=== PATIENT | female | born 1980 | race American Indian/Alaskan Native ===

== ENCOUNTER 2022-03-08 12:34 | Outpatient (CLI) | payer OTHER ==
[~2022-03-08 12:34] MED LIST: GADOBUTROL 7.5 MMOL/7.5 ML VIAL ONE
--- NOTE | 2022-03-08 15:01 | MRI Report ---
PROCEDURE: LUMBAR SPINE W/WO INDICATIONS: SOFT TISSUSE MASS CONTRAST: gadavist 6.4ml TECHNIQUE: Noncontrast sagittal T1 spin echo and T2 fast spin echo, sagittal STIR, axial T1 and T2 fast spin ech o through the lumbar spine. In cases with scoliosis, additional coronal T2 fast spin echo may be per formed. After the administration of contrast, sagittal and axial T1 spin echo with fat saturation th rough the lumbar spine. COMPARISON: None. FINDINGS: Image quality: Excellent. Alignment and curvature: There is trace anterolisthesis of L5 on S1. Marrow: Marrow is of normal overall signal. No acute vertebral body compression fractures. No susp icious marrow enhancement. Spinal cord: Conus medullaris terminates at the L1 level. Visualized spinal cord demonstrates arleth l signal, without suspicious enhancement. Paraspinous soft tissues: No paravertebral masses or abnormal enhancement. No abnormality identifie d at the area of palpable concern. Discs: Mild disc desiccation is present L4-5, L5-S1. L1-L2: No disc bulge, spinal stenosis or foraminal narrowing. L2-L3: Minimal disc bulge without spinal stenosis or foraminal narrowing. L3-L4: Mild disc bulge with posterior central protrusion with mild spinal stenosis and indentation of the anterior thecal sac. Minimal left foraminal narrowing. L4-L5: Mild disc bulge with slight effacement of the anterior thecal sac. Moderate bilateral forami nal narrowing with facet and ligamentum flavum hypertrophy. L5-S1: Mild disc bulge without spinal stenosis. Moderate to severe bilateral foraminal narrowing, l eft greater than right with facet and ligamentum flavum hypertrophy. There is appearance of pars defe ct with 3 mm anterolisthesis. IMPRESSION: Early multilevel degenerative changes as above. No visualized mass at the area of concern. Reviewed by: Caty Owens MD on 03/08/2022 3:00 PM PST Approved by: Caty Owens MD on 03/08/2022 3:00 PM PST Station ID: [id number]
[2022-03-08] MEDS ORDERED: GADOBUTROL 7.5 MMOL/7.5 ML VIAL IVP ONE (16:35)
== END 2022-03-08 12:35 | disposition home or self-care (01) ==
LOC: DI 12:34
PROVIDERS: ATTEND Physician Assistant
DX: M51.36 Other intervertebral disc degeneration, lumbar region (principal); M48.061 Spinal stenosis, lumbar region without neurogenic claudication; M47.816 Spondylosis without myelopathy or radiculopathy, lumbar region; M51.37 Other intervertebral disc degeneration, lumbosacral region; M47.817 Spondylosis without myelopathy or radiculopathy, lumbosacral region
CPT/HCPCS: 72158; A9585

== ENCOUNTER 2022-06-23 10:14 | Outpatient (CLI) | payer OTHER ==
[2022-06-23 10:51] VITALS: BP 122/70
--- NOTE | 2022-06-23 10:51 | SLEEP CARE CONSULTATION ---
Information from patient questionnaire entered by Adrianna Reyes. I have reviewed and concur with the information entered by Adrianna Reyes. This document represents the service I personally performed and the decisions made by me, Rossy Polo ARNP. History of Present Illness Service Date and Time: 06/23/2022 1014 Reason for Visit: New patient Chief Complaint: reports: Snoring, Frequent awakenings at night Date of Onset: 10+ years Usual bedtime: 11 PM Time it takes to fall asleep: 10 mins Snores at night: Yes Observed to quit breathing while asleep: No Sleeps alone due to snoring: No Number of times waking at night: 2-4 Reasons for waking at night: reports: Other (unknown reasons). denies: Choking, Snoring, Gasping for air Toss, Turn, or Twitch while sleeping: Yes Recalls having dreams: Yes Usually gets out of bed at: 7:20 AM; weekends [id number] Feels refreshed in the morning: No (somewhat) Morning headache: No Sleepy or fatigued during the day: Yes Ever fallen asleep while driving: No Takes day naps: No Prior sleep studies: No Additional HPI information: I had the pleasure of seeing JANA FLOWERS today regarding the possibility of her having a sleep disorder. Her current complaints are snoring and frequent night awakenings. She states that she can fall asleep well but will wake up frequently at night. She does not get up, out of bed. She just tries to go back to sleep. She has ADHD and is taking Adderall. She states that she snores but she has not been told that she stops breathing. She is taking Doxepin for anxiety at night. - Parasomnia Symptoms Ever been unable to move upon waking from sleep: Yes (1-2 times in life when younger) Walks in sleep: No Talks in sleep: No Ever acted out dreams in sleep: No Ever felt weak in the knees when startled or emotional: No Bothered by creepy, crawly, restless sensations in legs: No Problems with memory or concentration: Yes (both; hx of ADHD) Subjective Initial [place] Sleepiness Scale score: 5 (06/23/2022) Past Medical History Past Medical History: reports: Anxiety, Attention deficit Social History The patient's occupation is a [employer]. Patient is and lives in . Have you smoked in the past 12 months: No Alcohol use: Yes Alcohol amount and frequency: 4-6 drinks, 2-3 times a week Caffeine use: Yes Caffeine amount and frequency: 1 beverage, 3 x a week Family History Family history of sleep disordered breathing: No Allergies and Home Medications Known drug allergies: No Drug allergies reviewed: Yes Home medication list reviewed: Yes Allergy and home medication list: Medications: Adderall XR 15 mg daily Wellbutrin 150 mg daily Doxepin 3 mg nightly Review of Systems Weight gain over past 5 years: 20 Weight loss over past 5 years: 20, currently down Cardiovascular: denies: high blood pressure Respiratory: denies: shortness of breath Gastrointestinal: denies: heartburn Neurological: denies: headaches, seizure Psychiatric: reports: Attention Deficit Hyperactivity, anxiety Ear/Nose/Throat: reports: wisdom teeth removed. denies: tonsillectomy Endocrine: denies: thyroid disease Musculoskeletal: reports: back pain Immunologic: reports: allergies to food or environment (shrimp) Physical Exam Vital signs obtained and entered by: ADRIANNA Multani MA Blood Pressure: 122/70 (LEFT ARM) Cuff size: regular Heart Rate: 75 O2 Saturation: 99 Height: 5 ft 2 in Weight: 140 lb 6.4 oz Body Mass Index: 25.7 BMI Classification: Overweight Neck circumference: 13.75 Mouth and throat: normal Soft palate: long Hard palate: normal Uvula: normal Uvula visualization: 100% Mallampati Class I Tongue: enlarged in size with teeth lai on lateral edges Tonsils: 1+ Neck: normal w/o lymphadenopathy or thyromegaly Heart: regular rate and rhythm Lungs: clear bilaterally Impression and Plan 1. Suspected Obstructive Sleep Apnea-Hypopnea Syndrome, as suggested by a history of irregular snoring, frequent awakening during the night, unrefreshed sleep and cognitive impairment. Narrow oropharynx and obesity are common predisposing factors for obstructive sleep apnea-hypopnea syndrome. I recommend proceeding to polysomnography to confirm the diagnosis and to assess severity. If the patient has significant sleep disordered breathing, a manual CPAP titration study will also be performed to find the optimal treatment pressure. I informed the patient of what the sleep studies involve and after some discussion, obtained agreement to proceed. The pathophysiology of obstructive sleep apnea-hypopnea syndrome was discussed with the patient and health risks of cardiovascular and cerebrovascular disease if not treated. Risks of drowsy driving discussed in detail and patient advised to avoid long distance driving and to door puller at the first sign of drowsiness. Patient agreed to plan. * Schedule polysomnography +- manual CPAP titration study and return in 1-2 weeks after the study to discuss result and initiate therapy. * Avoid long distance driving or driving when feeling sleepy. * Avoid alcohol, sedative and muscle relaxant around bedtime. * Attempt to lose weight. * Review instructions provided by trained office staff on how to prepare for the sleep study. * Return for follow-up after sleep study completed. Counseling Topics: Weight loss health impact Visit Type: In Office Time Spent with Patient (minutes): 32 Provider Statement: I spent 100% of the Face to Face Visit with the patient with greater than 50% spent counseling the patient and coordination of care.
== END 2022-06-23 10:15 | disposition home or self-care (01) ==
LOC: SC 10:14
PROVIDERS: ATTEND Nurse Practitioner Family
DX: R06.83 Snoring (principal); G47.8 Other sleep disorders; E66.3 Overweight; Z68.25 Body mass index [BMI] 25.0-25.9, adult
CPT/HCPCS: 99203; 99212

== ENCOUNTER 2022-08-02 20:20 | Outpatient (CLI) | payer OTHER | END 2022-08-02 20:21 | disposition home or self-care (01) | LOC: SC 20:20 | PROVIDERS: ATTEND Nurse Practitioner Family | DX: G47.8 Other sleep disorders (principal) | CPT/HCPCS: 95810 ==

== ENCOUNTER 2022-08-05 10:53 | Outpatient (CLI) | payer OTHER ==
--- NOTE | 2022-08-05 10:45 | SLEEP CARE CONSULTATION ---
Information from patient questionnaire entered by Sheela Reyes. I have reviewed and concur with the information entered by Sheela Reyes. This document represents the service I personally performed and the decisions made by , Rossy Polo ARNP. History of Present Illness Service Date and Time: 08/05/2022 1020 Initial [place] Sleepiness Scale score: 5 (06/23/2022) Current [place] Sleepiness Scale score: 4 (08/05/22) Additional HPI information: JANA FLOWERS returns via video telehealth visit for follow up and results of the recently performed polysomnography. Patient was found to have mild Upper Airway Resistance Syndrome with an AHI of 1.5 with RDI 9.7 and rosangela oxygen saturation of 92%. I explained the pathophysiology behind obstructive sleep apnea. We then spent quite a bit of time discussing different treatment options. For mild obstructive sleep apnea, surgery and oral appliance are alternatives to nasal CPAP therapy but in moderate or severe cases, nasal CPAP is the most effective and reliable treatment. Because apnea is primarily in supine position, then positional management therapy could be effective. Methods discussed such as positioning with pillows, using a T-shirt with tennis balls in the back or commercial products that have a pillow format on back to prevent supine sleep. I reviewed the impact of weight changes on sleep apnea and strongly recommended losing weight. After some discussion, the patient opted to go with the nasal CPAP therapy. Nasal autoCPAP set at 4-15 cmH20 will be ordered with rationale explained. A manual titration study will be ordered if unable to find optimal pressure with office adjustments. I explained how CPAP machine works and what to expect when using the machine. Using CPAP every night in order to get used to it was emphasized. Patient advised to put CPAP mask on before getting into bed so as not to fall asleep without CPAP. To assist acclimation to CPAP use, it could also be used for a short time during day while reading or watching TV. The patient was instructed to call the CPAP supplier to discuss any mechanical problem that may occur. If the mask given is uncomfortable or is difficult to keep on through the night even with adjustment, contact the CPAP supplier as many will replace with another mask style if notified before 30 days. If snoring or perceives is not getting enough air or too much air from the machine, notify this office. Patient was cautioned about risks of drowsy driving until sleepiness symptoms resolve. Sleep Study - Results Type of Sleep Study: Polysomnography (COMPLETED 08/02/22) Prior sleep studies: No Polysomnography/Home Sleep Study results: IMPRESSION: The quality of the study is good. The patient had slightly reduced sleep efficiency due to frequent awakenings during the night. The sleep architecture was abnormal for sleep fragmentation and reduced amount of time spent in REM sleep. Respiratory monitoring showed evidence of upper airway resistance (AHI = 1.5 and RDI of 9.7) associated with frequent arousals, oxyhemoglobin desaturation but no significant hypoxia (rosangela oxygen saturation of 92%). The respiratory events occurred mainly during supine sleep (supine AHI = 9.8; non-supine = 0.90). Snore was moderate in intensity. There was no significant periodic leg movement of sleep. Cardiac rhythm was normal sinus rhythm without significant arrhythmia. No abnormal behavior (parasomnia) observed during the night. Allergies and Home Medications Known drug allergies: No Drug allergies reviewed: Yes Home medication list reviewed: Yes (Doxepin 6 mg) Review of Systems Review of systems same as previous: Yes (no changes) Physical Exam Vital signs obtained and entered by: SHEELA Multani MA Blood Pressure: 127/80 (PER PT) Height: 5 ft 1 in (PER PT) Weight: 138 lb (PER PT) Body Mass Index: 26.0 BMI Classification: Overweight Impression and Plan 1. Upper Airway Resistance Syndrome, mild, with lowest oxygen saturation of 92%. Obviously this is the cause of the patients symptoms of unrefreshed sleep, and excessive daytime sleepiness. Positive pressure therapy could benefit anxiety and attention deficit. As mentioned above, the patient will be started on nasal autoCPAP therapy with pressure set at 4-15 cmH2O. Compliance guidelines also reviewed. A copy of compliance guidelines will be given for reference at check out. Because the apnea is more severe supine, I instructed to avoid sleeping supine using pillow positioning until able to start CPAP use. * Nasal auto CPAP therapy, pressure at 4-15 cm H2O. * Attempt to lose weight. * Avoid alcohol consumption near bedtime. * Avoid supine sleep until using CPAP. * The patient is again cautioned about driving until sleepiness completely resolves. * Return one month after CPAP obtained. I will assess response to therapy and compliance at that time. Counseling Topics: Weight loss health impact Visit Type: Telehealth Video Video Type: Doximity Patient Location: Home Location of Provider: Office Patient agrees and consents to this telehealth visit type: Yes Patient agrees to have their insurance billed: Yes Time Spent with Patient (minutes): 21 Provider Statement: I spent 100% of the Telehealth Video Call with the patient with greater than 50% spent counseling the patient and coordination of care.
[2022-08-05 10:46] VITALS: BP 127/80
== END 2022-08-05 10:54 | disposition home or self-care (01) ==
LOC: SC 10:53
PROVIDERS: ATTEND Nurse Practitioner Family
DX: G47.8 Other sleep disorders (principal); E66.3 Overweight; Z68.26 Body mass index [BMI] 26.0-26.9, adult

== ENCOUNTER 2022-10-26 10:59 | Outpatient (CLI) | payer OTHER ==
--- NOTE | 2022-10-26 11:42 | Sleep Patient Instructions ---
Sleep Center Visit Summary - Patient Visit Information Reason for Visit: First Compliance visit for PAP therapy - Patient Instructions Additional Instructions: You were here for follow up of CPAP therapy. You will be continued on CPAP therapy with pressure at 8-11 cmH2O. Please let us know if the pressure change is uncomfortable and we can make further adjustments of the pressure. You should follow up with sleep care in 1-2 months. You may contact us sooner for any questions or concerns. - Clinic Information Contact: [facility] [address] [place] [address] [email or web address] T: [phone]
--- NOTE | 2022-10-26 11:47 | SLEEP CARE CONSULTATION ---
Information from patient questionnaire entered by Adrianna Reyes. I have reviewed and concur with the information entered by Adrianna Reyes. This document represents the service I personally performed and the decisions made by , Rossy Polo ARNP. History of Present Illness Service Date and Time: 10/26/2022 1059 Previous diagnosis: Mild, Other (Upper Airway Resistance Syndrome) AHI: 1.5 (with RDI 9.7 in 04/05/2022) Reason for follow up: first compliance Equipment type: CPAP (RESMED 11, s/) Equipment obtained from: Other ([facility] [employer], [employer] supplies) Mask style: Nasal Backup mask available: No (will keep old mask when replaced) Last cushion change: 2 weeks Prior sleep studies: No Type of Sleep Study: Polysomnography (COMPLETED 08/02/22) HPI additional information: JANA FLOWERS was diagnosed to have mild, AHI 1.5 with RDI 9.7, upper airway resistance syndrome and returned today with children for CPAP therapy first compliance follow-up. Sleep Study - Results Type of Sleep Study: Polysomnography (COMPLETED 08/02/22) Prior sleep studies: No CPAP Compliance Data - Data Reviewed with Patient Average duration of nightly device use: 6 hours 31 minutes Compliance rate %: 27 (12/27 days used) Current pressure setting (cmH2O): 4-15 (median 8.5, avg 12.4, max 13.5) Average residual AHI: 2.1 (RERA 0.1) Central apnea: 1.4 Obstructive apnea: 0.3 Hypopnea: 0.4 Subjective Missed days of use due to: reports: travel, other (lazy) Patient concerns: denies: aerophagia, mask discomfort, air blowing in eyes, mask leak noise, condensation in mask/hose, nasal congestion, dry mouth, nose, throat, epistaxis Observed to snore while using device: No Current pressure setting perceived as: comfortable On therapy, patient: reports: other (has not noticed a difference yet). denies: drowsiness while driving Initial [place] Sleepiness Scale score: 5 (06/23/2022) Current [place] Sleepiness Scale score: 2 (10/26/22) Allergies and Home Medications Known drug allergies: No Drug allergies reviewed: Yes Home medication list reviewed: Yes (Adderall) Allergy and home medication list: Allergies No Known Drug Allergies Allergy (Verified 10/25/22 09:36) Review of Systems Review of systems same as previous: Yes (no changes) Physical Exam Vital signs obtained and entered by: ADRIANNA Multani MA Blood Pressure: 120/76 (LEFT ARM) Cuff size: regular Heart Rate: 71 O2 Saturation: 98 Height: 5 ft 1 in (PER PT) Weight: 139 lb 6.4 oz Body Mass Index: 26.3 BMI Classification: Overweight Impression and Plan 1. Upper Airway Resistance Syndrome, mild, with poor treatment compliance and good apnea control. On CPAP therapy, the patient has not noted an improvement of her sleep or other symptoms. She has only used it 10 days of last 30 days. I advised her to try to use the CPAP every night to be able to get best therapy and improve symptoms. Her [place] scale did improve from 07/21 to 04/23. The patients pressure will be changed to autoCPAP 8-11 cmH20 to reflect pressure being used. Patient advised to contact me if pressure to change is uncomfortable so that it can be adjusted. Goals for apnea control discussed. Patient's apnea severity and rationale for treatment to reduce apnea, improve sleep quality and reduce cardiovascular and cerebrovascular events was reviewed. I also reviewed the benefit of consistent device use of CPAP for anxiety and attention deficit. 2. Overweight, unspecified. Currently patients BMI is 26.3. Obesity increases the risk of apnea, CPAP pressure requirements and overall health risks especially cardiovascular and diabetes. Thus patient is advised to lose weight. * Change auto CPAP pressure to 8-11 cmH2O * Notify me if snoring with mask or feeling that the pressure is too much or too little * Attempt to lose weight * Call this office if any problems using CPAP * Return for follow up in 1-2 months, or sooner if concerns arise Counseling Topics: Spare mask, Weight loss health impact Visit Type: In Office Time Spent with Patient (minutes): 21 Provider Statement: I spent 100% of the Face to Face Visit with the patient with greater than 50% spent counseling the patient and coordination of care.
[2022-10-26 11:52] VITALS: BP 120/76; O2SAT 98
== END 2022-10-26 11:00 | disposition home or self-care (01) ==
LOC: SC 10:59
PROVIDERS: ATTEND Nurse Practitioner Family
DX: G47.8 Other sleep disorders (principal); Z68.26 Body mass index [BMI] 26.0-26.9, adult
CPT/HCPCS: 99212; 99213

== ENCOUNTER 2022-12-24 11:08 | Outpatient (CLI) | payer OTHER ==
--- NOTE | 2022-12-24 11:36 | Sleep Patient Instructions ---
Sleep Center Visit Summary - Patient Visit Information Reason for Visit: 2-month followup for PAP therapy - Patient Instructions Additional Instructions: You were here for follow up of CPAP therapy. You will be discontinued on CPAP therapy and start on Positional therapy. You should avoid sleeping on your back. You should follow up with sleep care in 12 months. You may contact us sooner for any questions or concerns. - Clinic Information Contact: [facility] [address] [place] [id number] [email or web address] T: [phone]
--- NOTE | 2022-12-24 11:39 | SLEEP CARE CONSULTATION ---
Information from patient questionnaire entered by Sheela Reyes. I have reviewed and concur with the information entered by Sheela Reyes. This document represents the service I personally performed and the decisions made by , Rossy Polo ARNP. History of Present Illness Service Date and Time: 12/24/2022 1108 Previous diagnosis: Mild, Other (Upper Airway Resistance Syndrome) AHI: 1.5 (with RDI 9.7 in 04/05/2022) Reason for follow up: other (2 MONTH F/U PRESSURE CHANGE) Equipment type: CPAP (RESMED 11, s/u 07/2022) Equipment obtained from: Other ([facility], [employer] supplies) Mask style: Nasal Prior sleep studies: No Type of Sleep Study: Polysomnography (COMPLETED 08/02/22) HPI additional information: JANA FLOWERS was diagnosed to have mild, AHI 1.5 with RDI 9.7, upper airway resistance syndrome and returned today for CPAP therapy 2 month follow-up. Sleep Study - Results Type of Sleep Study: Polysomnography (COMPLETED 08/02/22) Prior sleep studies: No CPAP Compliance Data - Data Reviewed with Patient Average duration of nightly device use: 7 hours 16 mins Compliance rate %: 27 (16/60 days used) Current pressure setting (cmH2O): 8-11 Average residual AHI: 2 (RERA 0.2) Average large leak: 0.2 L/min Subjective Missed days of use due to: reports: mask issues (moves and wakes her up), other Patient concerns: reports: mask discomfort, air blowing in eyes On therapy, patient: denies: sleeping better, awakening more refreshed, being more awake and alert during the day, more rested overall, drowsiness while drgilberti ng Initial [place] Sleepiness Scale score: 5 (06/23/2022) Current [place] Sleepiness Scale score: 3 (12/24/22) Allergies and Home Medications Known drug allergies: No Drug allergies reviewed: Yes Home medication list reviewed: Yes (doxepin added) Allergy and home medication list: Allergies shrimp Allergy (Verified 12/23/22 12:43) Home Medications Medication Instructions Recorded Confirmed Last Taken Type Dextroamphetamine/Amphetamine See Rx Instructions .ROUTE .COMPLEX 10/26/22 12/24/22 Unknown History [Adderall 15 mg Tablet] Multivitamin See Rx Instructions .ROUTE .COMPLEX 10/26/22 12/24/22 Unknown History Doxepin HCl [Silenor] See Rx Instructions .ROUTE .COMPLEX 12/24/22 12/24/22 Unknown History Review of Systems Review of systems same as previous: Yes (NO CHANGE) Physical Exam Vital signs obtained and entered by: SHEELA Multani MA Blood Pressure: 110/70 (LEFT ARM) Cuff size: regular Heart Rate: 74 O2 Saturation: 97 Height: 5 ft 1 in (PER PT) Weight: 140 lb 3.2 oz Body Mass Index: 26.4 BMI Classification: Overweight Impression and Plan 1. Upper Airway Resistance Syndrome, mild, with poor treatment compliance and good apnea control. On CPAP therapy, the patient feels like she is not getting better sleep and the mask actually interrupts her sleep. She normally ends up sleeping on her stomach or sides. I reviewed her sleep study report and she could do positional therapy to control her sleep apnea. She is actually doing positional therapy when she is not using her mask and able to sleep soundly on her stomach and sides. I will discontinue her CPAP per her request and have her do positional therapy to control her sleep apnea. Patient's apnea severity and rationale for treatment to reduce apnea, improve sleep quality and reduce cardiovascular and cerebrovascular events was reviewed. She has history of anxiety and attention deficit. 2. Overweight, unspecified. Currently patients BMI is 26.4. Obesity increases the risk of apnea, CPAP pressure requirements and overall health risks especially cardiovascular and diabetes. Thus patient is advised to maintain a healthy weight. * Discontinue CPAP * Start positional therapy * Attempt to lose weight * Call this office if any problems * Return for follow up in 12 months, or sooner if concerns arise Counseling Topics: Sleeping position, Weight loss health impact Follow up with Sleep Care in: 1 year Visit Type: In Office Time Spent with Patient (minutes): 23 Provider Statement: I spent 100% of the Face to Face Visit with the patient with greater than 50% spent counseling the patient and coordination of care.
[2022-12-24 11:45] VITALS: BP 110/70; O2SAT 97
== END 2022-12-24 11:09 | disposition home or self-care (01) ==
LOC: SC 11:08
PROVIDERS: ATTEND Nurse Practitioner Family
DX: G47.8 Other sleep disorders (principal); E66.3 Overweight; Z68.26 Body mass index [BMI] 26.0-26.9, adult
CPT/HCPCS: 99212; 99213